=== PATIENT | female | born 1995 | race Caucasian/White ===

== ENCOUNTER → 2017-12-21 | Outpatient (CLI) | payer OTHER, SELFPAY | LOC: M RAD 13:48 | DX: N20.0 Calculus of kidney (principal); Z98.890 Other specified postprocedural states | CPT/HCPCS: 74176 ==

== ENCOUNTER 2018-07-15 05:51 | Emergency (ER) | payer OTHER, SELFPAY ==
[~2018-07-15] VITALS: Ht 152.4 cm; Wt 54.5 kg
[2018-07-15 05:51] VITALS: BP 146/87
[2018-07-15] MEDS ORDERED: OXYB10TA (06:26)
== END 2018-07-15 07:57 | disposition left against medical advice (07) ==
LOC: M ED 05:51
DX: M54.9 Dorsalgia, unspecified (principal); Z53.21 Procedure and treatment not carried out due to patient leaving prior to being seen by health care provider

== ENCOUNTER → 2020-12-22 | Outpatient (CLI) | payer OTHER ==
[~2020-12-22] MED LIST: OXYB10TA23
--- NOTE | 2020-12-22 22:30 | REP ---
INDICATION: BLADDER STONES COMPARISON: None TECHNIQUE: Real time kolb scale ultrasound examination using curved array transducer. FINDINGS: Bilateral kidneys are relatively normal in contour, size, echogenicity, and reniform shape. No hydronephrosis, cystic or renal mass lesion identified. Right kidney measures 10.7 x 5.6 x 4.7 cm with incidental column of Lance noted and no evidence for nephrolithiasis. Left kidney measures 10.5 x 4.5 x 4.7 cm and includes 6 mm nonobstructing calculus. The bladder includes 2.6 cm rim calcified shadowing structure consistent with bladder stone. IMPRESSION: 1. 6 mm nonobstructing left intrarenal calculus. 2. 2.6 cm bladder stone. <Electronically signed by Delbert Camara > 12/22/20 [id number]
== END ==
LOC: M RAD 14:13
PROVIDERS: ATTEND Student in an Organized Health Care Education/Training Program
DX: N21.0 Calculus in bladder (principal)

== ENCOUNTER → 2021-01-25 | Outpatient (CLI) | payer OTHER ==
[2021-01-25 15:25] LABS: APPEARANCE, URINE TURBID (CLEAR); BILIRUBIN, URINE AUTO NEGATIVE (NEGATIVE); BLOOD, URINE BLOOD 1+ (NEGATIVE); COLOR, URINE RED (YELLOW); GLUCOSE, URINE (UA) AUTO NEGATIVE (NEGATIVE); KETONE, URINE AUTO NEGATIVE (NEGATIVE); LEUKOCYTE ESTERASE, URINE AUTO 2+ (NEGATIVE); NITRITE, URINE AUTO POSITIVE (NEGATIVE); PROTEIN, URINE AUTO 1+ mg/dL (NEGATIVE); SPECIFIC GRAVITY URINE AUTO 1.012 (1.002-1.035); UROBILINOGEN, URINE AUTO 0.2 mg/dL (0.0-2.0)
[2021-01-25 15:29] LABS: BACTERIA, URINE AUTO 2+ (NEGATIVE); MUCUS, URINE SMALL (NEGATIVE); RBC, URINE AUTO 19 /HPF (0-3); SQUAMOUS EPITHELIAL CELL UR AU 2 /HPF (0-6); WBC, URINE AUTO 113 /HPF (0-3)
== END ==
LOC: M LAB 14:41
PROVIDERS: ATTEND Student in an Organized Health Care Education/Training Program
DX: R82.90 Unspecified abnormal findings in urine (principal)